=== PATIENT | female | born 1985 | race African-American/Black ===

== ENCOUNTER 2018-04-15 08:33 | Emergency (ER) | payer OTHER ==
[2018-04-15] MEDS ORDERED: IBUPROFEN 800 MG TABLET PO STA (09:31)
--- NOTE | 2018-04-15 09:34 | ED Physician Documentation ---
PD HPI BACK PAIN - Stated complaint Stated Complaint: BACK PX - Chief complaint Chief Complaint: Back Pain - History obtained from History obtained from: Patient - History of Present Illness Timing - onset: Last night Timing - details: Still present Pain level max: 7 Pain level now: 3 Location: Mid, Left Quality: Pain Associated symptoms: No: Fever Similar symptoms before: Has not had sx before - Additional information Additional information: The patient is an otherwise healthy 33-year-old female who presents with left mid back pain that started last night and persists this morning. It was intense last night, rated at 7 out of 10 in severity. It is more mild this morning, rated at 3 out of 10 in severity. She denies any associated fever, nausea, vomiting, or dysuria. Her last menstrual period was 1 month ago. She denies history of similar symptoms in the past. She denies any recent activity that is different from usual. 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 - Allergies Allergies/Adverse Reactions: Allergies Allergy/AdvReac Type Severity Reaction Status Date / Time No Known Drug Allergies Allergy Verified 05/16/16 20:51 - Social History Does the pt smoke?: No Smoking Status: Current every day smoker Does the pt drink ETOH?: Yes Does the pt have substance abuse?: No - Immunizations Immunizations are current?: Yes PD ED PE NORMAL - Vitals Vital signs reviewed: Yes (Borderline hypertension.) - General General: Alert and oriented X 3, Well developed/nourished, Other (Overweight) - HEENT HEENT: Atraumatic, Pharynx benign - Neck Neck: Supple, no meningeal sign, No adenopathy, No JVD - Cardiac Cardiac: RRR, No murmur - Respiratory Respiratory: No respiratory distress, Clear bilaterally - Abdomen Abdomen: Soft, Non tender - Back Back: No CVA TTP, No spinal TTP, Other (There is tenderness to palpation over the left paraspinous musculature, in the lower thoracic region. There is no CVA tenderness to percussion, and no tenderness to palpation along the spinous processes.) - Derm Derm: No rash - Extremities Extremities: No edema, No calf tenderness / cord - Neuro Neuro: Alert and oriented X 3, No motor deficit, No sensory deficit Results - Vitals Vitals: Vital Signs - 24 hr 04/15/18 08:41 Heart Rate 104 H Respiratory 14 Rate Blood Pressure 142/98 H O2 Saturation 98 Oxygen O2 Source Room air - Labs Labs: Laboratory Tests 04/15/18 09:40 Urine Color YELLOW Urine Clarity CLEAR Urine pH 6.5 Ur Specific [place] <=1.005 Urine Protein NEGATIVE Urine Glucose (UA) NEGATIVE Urine Ketones NEGATIVE Urine Occult Blood NEGATIVE Urine Nitrite NEGATIVE Urine Bilirubin NEGATIVE Urine Urobilinogen 0.2 (NORMAL) Ur Leukocyte Esterase NEGATIVE Ur Microscopic Review NOT INDICATED Urine Culture Comments NOT INDICATED PD MEDICAL DECISION MAKING - ED course Complexity details: reviewed results, re-evaluated patient, considered differential, d/w patient ED course: The patient's presentation is most consistent with musculoskeletal mid back pain. Urinalysis is negative, making renal colic unlikely. In addition the patient's tenderness is higher than would be expected for renal colic. Her presentation does not suggest pneumothorax or pneumonia. Treatment in the emergency department included administration of ibuprofen, 800 mg orally. I discussed with her the expected course of illness, symptomatic treatment and outpatient follow-up, as well as potentially worrisome signs or symptoms that should prompt reevaluation in the emergency department. - Sepsis Event Vital Signs: Vital Signs - 24 hr 04/15/18 08:41 Heart Rate 104 H Respiratory 14 Rate Blood Pressure 142/98 H O2 Saturation 98 Oxygen O2 Source Room air Departure - Departure Disposition: 01 Home, Self Care Clinical Impression: Back pain Condition: Stable Instructions: ED Neck Back Pain General Follow-Up: ALANNAH Carranza [Provider Group] Comments: You can use ibuprofen, up to 800 mg 3 times daily for its anti-inflammatory effect. You can apply ice pack intermittently to the painful area. Let pain be your guide to activity level. Follow up with your primary physician within 2 weeks. Call to schedule an appointment. Return to the emergency department if you develop increasing pain or difficulty breathing, or otherwise worsening symptoms.
[2018-04-15 09:48] LABS: BILIRUBIN,URINE NEGATIVE (NEGATIVE); CLARITY,URINE CLEAR (CLEAR); GLUCOSE, URINE (UA) NEGATIVE (NEGATIVE); KETONES,URINE (UA) NEGATIVE (NEGATIVE); LEUKOCYTE ESTERASE, URINE NEGATIVE (NEGATIVE); NITRITE,URINE NEGATIVE (NEGATIVE); OCCULT BLOOD,URINE NEGATIVE (NEGATIVE); PH,URINE 6.5 PH (5.0-7.5); PROTEIN,URINE NEGATIVE (NEGATIVE); UROBILINOGEN,URINE 0.2 (NORMAL) E.U./dL (NORMAL)
[2018-04-15 10:32] VITALS: BP 145/104
== END 2018-04-15 10:33 | disposition home or self-care (01) ==
LOC: ED 08:33
DX: M54.9 Dorsalgia, unspecified (principal); F17.200 Nicotine dependence, unspecified, uncomplicated
CPT/HCPCS: 81003; 99283; A9270; 81001; 87086